=== PATIENT | female | born 1945 | race Caucasian/White ===

== ENCOUNTER 2018-06-05 13:36 | Observation (INO) ==
[2018-06-05] MEDS ORDERED: HYDROmorphone 2 MG/1 ML VIAL IV PRN (14:26)
[2018-06-05] MEDS ORDERED: BISACODYL 5 MG TABLET PO PRN (14:26)
[2018-06-05] MEDS ORDERED: ACETAMINOPHEN 325 MG TABLET PO PRN (14:26)
[2018-06-05] MEDS ORDERED: ONDANSETRON 4 MG/2 ML VIAL IV PRN (14:26)
[2018-06-05] MEDS ORDERED: ALBUTEROL/IPRATROPIUM 3 ML NEB RESP TX PRN (14:26)
[2018-06-05 15:53] LABS: Hematocrit 25.4 VOL% (35.7-47.0); Hemoglobin 8.2 GM/DL (12.0-16.0)
[2018-06-05 16:21] LABS: PT Patient Result 10.4 SECS; Partial Thromboplastin Time 22.4 SECS (0-40)
[2018-06-05] MEDS: LACTATED RINGERS 1,000 ML IV SCH (16:48)
[2018-06-05 18:38] LABS: Hematocrit 26.4 VOL% (35.7-47.0); Hemoglobin 8.8 GM/DL (12.0-16.0)
[2018-06-05 21:47] LABS: Hematocrit 25.7 VOL% (35.7-47.0); Hemoglobin 8.5 GM/DL (12.0-16.0)
[2018-06-06] MEDS: LACTATED RINGERS 1,000 ML IV SCH ×3 (00:54→18:19)
[2018-06-06 02:59] LABS: Calcium 8.2 MG/DL (8.5-10.1); Osmolality,Calculated 280.1 MOS/KG (273-304); Potassium 3.8 MMOL/L (3.5-5.1)
[2018-06-06 03:03] LABS: Basophils % 0.5 % (0.0-0.8); Eosinophils # 0.1 10*3/uL (0.0-0.87); Eosinophils % 1.9 % (0.00-10.9); Hematocrit 26.1 VOL% (35.7-47.0); Hemoglobin 8.7 GM/DL (12.0-16.0); Immature Granulocytes % 1.2 %; Immature Granulocytes Absolute 0.05 #; Lymphocytes # 1.2 10*3/uL (1.4-4.0); Lymphocytes % 28.1 % (21.3-54.2); Mean Corpuscular HGB Conc 33.3 GM/DL (32-36); Mean Corpuscular Hemoglobin 31 PG (27-34); Mean Corpuscular Volume 93.2 FL (87-102); Monocytes # 0.3 10*3/uL (0.11-0.8); Monocytes % 7.5 % (1.7-12.7); Neutrophils # 2.6 10*3/uL (1.4-7.4); Neutrophils % 60.8 % (38.7-73.9); Platelet Count 116 T/CUMM (130-400); White Blood Count 4.3 T/CUMM (4-12)
[2018-06-06 06:55] LABS: Hematocrit 26.6 VOL% (35.7-47.0); Hemoglobin 8.7 GM/DL (12.0-16.0)
[2018-06-06] MEDS: PANTOPRAZOLE 40 MG TABLET PO SCH (08:50)
[2018-06-07] MEDS: LACTATED RINGERS 1,000 ML IV SCH ×2 (01:38→08:09)
[2018-06-07 05:23] LABS: Hematocrit 26.7 VOL% (35.7-47.0); Hemoglobin 8.9 GM/DL (12.0-16.0)
[2018-06-07] MEDS: PANTOPRAZOLE 40 MG TABLET PO SCH (08:08)
[2018-06-07 11:04] VITALS: BP 144/63
== END 2018-06-07 11:35 | disposition home or self-care (01) ==
LOC: N.3E
PROVIDERS: ADMIT Surgery; ATTEND Surgery